=== PATIENT | female | born 1965 | race Caucasian/White ===

== ENCOUNTER 2020-07-17 14:14 | Emergency (ER) | payer OTHER ==
[~2020-07-17] VITALS: Ht 162.6 cm; Wt 86.2 kg
[~2020-07-17 14:14] MED LIST: AMOX1TAB12; PERCOCET 5/3251 TAB; SYNTHROID50 MCG
[2020-07-17] MEDS ORDERED: MEDROL4 MG PO (14:44)
[2020-07-17] MEDS ORDERED: DOLOGEN CAPLET1 EACH PO (14:44)
[2020-07-17] MEDS ORDERED: CYCLOBENZAPRINE10 MG PO (14:44)
== END 2020-07-17 17:56 | disposition home or self-care (01) ==
LOC: ER 14:14
DX: M25.512 Pain in left shoulder (principal)

== ENCOUNTER 2022-12-27 09:07 | Day surgery (SDC) | payer OTHER ==
[~2022-12-27 09:07] MED LIST changes: +CYCLOBENZAPRINE10 MG PO; +DOLOGEN CAPLET1 EACH PO; +MEDROL4 MG PO
== END 2022-12-27 15:00 | disposition home or self-care (01) ==
LOC: AMB-ENDOS 09:07
PROVIDERS: ATTEND Colon & Rectal Surgery
DX: K63.5 Polyp of colon (principal); K59.00 Constipation, unspecified; K57.30 Diverticulosis of large intestine without perforation or abscess without bleeding; K64.8 Other hemorrhoids; Z20.822 Contact with and (suspected) exposure to COVID-19; Z88.8 Allergy status to other drugs, medicaments and biological substances

== ENCOUNTER 2024-09-17 20:13 | Emergency (ER) | payer OTHER ==
[~2024-09-17] VITALS: Ht 162.6 cm; Wt 81.2 kg
[2024-09-17 20:24] VITALS: BP 153/77; O2SAT 99
[2024-09-17] MEDS ORDERED: KETOROLAC TROMETHAMINE 30 MG VIAL IM STA (21:47)
[2024-09-17] MEDS ORDERED: ORPHENADRINE CITRATE 30 MG/ML AMPUL IM STA (21:48)
[2024-09-17] MEDS ORDERED: FAMOTIDINE/PF 20 MG/2 ML VIAL IV PUSH STA (21:52)
[2024-09-17] MEDS ORDERED: ONDANSETRON HCL 2 MG/ML VIAL IV STA (21:53)
[2024-09-17] MEDS ORDERED: ORPHENADRINE CITRATE 30 MG/ML AMPUL ONE (21:56)
[2024-09-17] MEDS ORDERED: KETOROLAC TROMETHAMINE 30 MG VIAL ONE (21:56)
[2024-09-17] MEDS ORDERED: FAMOTIDINE/PF 20 MG/2 ML VIAL ONE (21:56)
[2024-09-17] MEDS ORDERED: ONDANSETRON HCL 2 MG/ML VIAL ONE (21:56)
== END 2024-09-17 23:04 | disposition home or self-care (01) ==
LOC: ER 20:34
DX: M54.31 Sciatica, right side (principal); Z88.1 Allergy status to other antibiotic agents